=== PATIENT | female | born 1940 | race Caucasian/White ===

== ENCOUNTER 2020-03-09 11:39 | Emergency (ER) | payer BC, MEDICARE ==
[~2020-03-09] VITALS: Ht 157.5 cm; Wt 60.9 kg
[2020-03-09 11:53] VITALS: BP 155/79
[2020-03-09] MEDS ORDERED: oxymetazoline 15 ML nasal spray NS ONE (12:40)
[2020-03-09] MEDS ORDERED: tranexamic acid 100mg/ml inj. TP ONE (13:05)
--- NOTE | 2020-03-09 13:50 | NUR ---
Patient resting in bed. she is still having slight oozing of blood from right nastral. Continuing to monitor.
== END 2020-03-09 14:41 | disposition home or self-care (01) ==
LOC: ER 11:40
DX: R04.0 Epistaxis (principal); Z88.0 Allergy status to penicillin; Z88.1 Allergy status to other antibiotic agents; Z88.5 Allergy status to narcotic agent
CPT/HCPCS: 30901; 99284

== ENCOUNTER 2022-02-10 05:28 | Inpatient (IN) | payer BC, MEDICARE ==
[2022-01-29 11:07] LABS: BASOPHILS # (AUTO) 0.1 X10'3 (0-0.2); BASOPHILS % (AUTO) 0.7 % (0-1); EOSINOPHILS # (AUTO) 0.3 X10'3 (0-0.9); EOSINOPHILS % (AUTO) 4.7 % (0-6); LYMPHOCYTES # (AUTO) 1.4 X10'3 (1.1-4.8); MEAN CORPUSCULAR HGB CONC 33.2 g/dL (33.0-36.5); MEAN CORPUSCULAR VOLUME 84.5 FL (78-98); MEAN PLATELET VOLUME 8.2 FL (7.4-10.4); MONOCYTES # (AUTO) 0.7 X10'3 (0-0.9); MONOCYTES % (AUTO) 9.5 % (2-12); NEUTROPHILS # (AUTO) 4.6 X10'3 (1.8-7.7); NEUTROPHILS % (AUTO) 65.1 % (42-75); PRE OP HEMATOCRIT 32.5 % (35.0-45.0); PRE OP PLATELET COUNT 238 X10'3 (140-440); RED BLOOD COUNT 3.85 X10'6 (4.20-5.60); RED CELL DISTRIBUTION WIDTH 14.3 % (11.5-14.5)
[2022-01-29 11:09] LABS: PRE OP HEMOGLOBIN 10.8 g/dL (12.0-16.0)
[2022-01-29 11:32] LABS: ALBUMIN 3.7 G/DL (3.4-5.0); ALKALINE PHOSPHATASE 93 IU/L (46-116); BLOOD UREA NITROGEN 36 MG/DL (7-18); BUN/CREATININE RATIO 24.2 (6.6-38.0); CALCIUM 8.9 MG/DL (8.5-10.1); CHLORIDE 101 MMOL/L (99-107); CREATININE 1.49 MG/DL (0.40-0.90); PRE OP ALT 21 U/L (30-65); PRE OP ANION GAP -1 (8-16); PRE OP AST 22 U/L (10-37); PRE OP BILIRUB, TOTAL 0.4 MG/DL (0.0-1.0); PRE OP GLUCOSE 96 MG/DL (70-104); PRE OP POTASSIUM 3.5 MMOL/L (3.4-5.1); TOTAL CARBON DIOXIDE 27.6 MMOL/L (24-32); TOTAL PROTEIN 7.4 G/DL (6.4-8.2); eGFR 34 ML/MIN
[2022-01-29 11:35] LABS: PRE OP SODIUM 128 MMOL/L (135-145)
[2022-02-10] VITALS (23 sets, daily range): BP systolic 97–160; BP diastolic 48–101
[~2022-02-10] VITALS: Ht 157.5 cm; Wt 66.0 kg
[~2022-02-10 05:28] MED LIST: ASPI81TA52 PO; CALC600T22 PO; CHOL400T8 PO; COLLAGEN PO; DOCO1CAP11 PO; ESTR10TA VG; LACT1CAP65 PO; LEVO100T9 PO; MULT-1085 PO; PANT-47 PO; ROSU10TA2 PO; ringers solution, lacted 1,000 ML IV SCH
[2022-02-10] MEDS ORDERED: tranexamic acid 650mg tablet PO ONE (05:30)
[2022-02-10] MEDS ORDERED: vancomycin/NS 1 GM in NS 250 ML IV ONE (05:30)
[2022-02-10] MEDS ORDERED: ceFAZolin inj. 2,000 MG in dextrose 5%-water 100 ML IV ONE (05:30)
[2022-02-10] MEDS ORDERED: famotidine 20mg tablet PO ONE (05:30)
--- NOTE | 2022-02-10 06:30 | NUR ---
CSM INTACT, NEURO CHECK INTACT, PT DID NOT USE OINTMENT AND DID NOT WATCH THE VIDEO. Addendum: 02/10/22 at 1328 by Vivien Mcdaniel RN, RN Amended: Links added.
[2022-02-10 06:59] LABS: ISTAT CREATININE 1.6 mg/dL (0.6-1.1); ISTAT HGB 11.2 g/dl (12.0-16.0); ISTAT IONIZED CALCIUM 1.21 mmol/L (1.03-1.32); ISTAT K 3.7 mmol/L (3.5-5.1); POC BUN/CREATININE RATIO 21.3 (6.6-38.0)
[2022-02-10] MEDS ORDERED: ketorolac trometh. 30mg/ml inj. ONE (07:02)
[2022-02-10] MEDS ORDERED: ROPIVAcaine 0.5% (5mg/ml) 30ml vial ONE ×2 (07:02→09:08)
[2022-02-10] MEDS ORDERED: tetracaine 1% (10mg/ml) pres. free inj. ONE (07:21)
[2022-02-10] MEDS ORDERED: cloNIDine hcl/PF 100mcg/ml inj ONE (07:22)
[2022-02-10] MEDS ORDERED: midazolam 1 mg/ML 2ml injection ONE (07:26)
[2022-02-10] MEDS ORDERED: FENTANYL CITRATE/PF 50 MCG/1 ML VIAL ONE (07:26)
[2022-02-10] MEDS ORDERED: acetaminophen 1,000mg/100ml IV 100 ML IV PRN (08:40)
[2022-02-10] MEDS ORDERED: HYDROmorphone/PF 0.2 MG/ML SYRINGE IV PRN ×2 (08:40)
[2022-02-10] MEDS ORDERED: hydrALAZINE 20mg/ml inj. IV PRN (08:40)
[2022-02-10] MEDS ORDERED: proCHLORperazine 10 MG/2 ml inj IV PRN (08:40)
[2022-02-10] MEDS ORDERED: ondansetron/PF 4mg/2ml inj IV PRN ×2 (08:40→09:40)
[2022-02-10] MEDS ORDERED: morphine 4 MG/ML inj SYRINge IV PRN (08:40)
[2022-02-10] MEDS ORDERED: meperidine/PF 25mg/ml syringe IV PRN (08:40)
[2022-02-10] MEDS ORDERED: morphine 2 MG/ML inj. syringe IV PRN (08:40)
[2022-02-10] MEDS ORDERED: labetalol 20mg/4ml (5mg/ml) syringe IV PRN (08:40)
[2022-02-10] MEDS ORDERED: ringers solution, lacted 1,000 ML IV SCH (08:40)
[2022-02-10] MEDS ORDERED: ePHEDrine 50MG/ML INJ. ONE (09:08)
[2022-02-10] MEDS ORDERED: propofol inj 20 ML IV ONE ×3 (09:08)
[2022-02-10] MEDS ORDERED: dexamethasone sod phosphate 4mg/ml inj. ONE (09:08)
[2022-02-10] MEDS ORDERED: 0.9 % SODIUM CHLORIDE 10 ML VIAL ONE ×3 (09:08)
[2022-02-10] MEDS ORDERED: bisacodyl 10mg suppository rectal RC PRN (09:40)
[2022-02-10] MEDS ORDERED: naloxone 0.4 mg/ml inj IV PRN (09:40)
[2022-02-10] MEDS ORDERED: HYDROmorphone 1 mg/ml syringe IV PRN (09:40)
[2022-02-10] MEDS ORDERED: diphenhydrAMINE 25mg capsule PO PRN ×2 (09:40)
[2022-02-10] MEDS ORDERED: magnesium hydroxide 30ml (MOM) UD suspension PO PRN (09:40)
[2022-02-10] MEDS ORDERED: HYDROcodone/acetaminophen 10/325mg tab PO PRN ×2 (09:40)
[2022-02-10] MEDS ORDERED: acetaminophen 325mg tablet PO PRN (09:40)
[2022-02-10] MEDS ORDERED: HYDROmorphone inj. 0.5 MG/0.5 ML DISP.SYRIN IV PRN (09:40)
[2022-02-10] MEDS ORDERED: oxyCODONE IR 5mg (immed. release) tablet PO PRN ×2 (09:40)
--- NOTE | 2022-02-10 09:56 | NUR ---
Received from OR via , accompanied by Anesthesiologist CHERIE AND THE OR NURSE and report given by Anesthesiolgist. PT IS AWAKE/ALERT AND DENIES PAIN OR DISCOMFORT. CRAWLEY CATHETER PRESENT AND PATENT. 20G TO LEFT ARM. AYDEE ON 5LPM OF ; KIMBERLY MAGALLON. Addendum: 02/10/22 at 1109 by Kerrie Chaudhry RN Amended: Links added.
--- NOTE | 2022-02-10 12:06 | NUR ---
Report called to receiving nurse. Transferred via BED WITH ONE BAG OF Belongings . DAUGHTER, STEPH ACCOMPANIED PT TO FLOOR. PT DENIES PAIN OR DISCOMFORT. VSS. ABLE TO TOLERATE FLUIDS. LR RUNNING AT 100ML/HR. . Special Issues communicated to receiving nurse. Addendum: 02/10/22 at 1211 by Kerrie Chaudhry RN Amended: Links added.
--- NOTE | 2022-02-10 12:15 | NUR ---
Received patient to room 340B accompanied by x1 staff and daughter. Patient alert and oriented no apparent acute distress and denies any pain or discomfort at this time. Patient with dixon catheter draining to gravity clear yellow urine. Right knee with island dressing with small shadowing circled and karina ice pack, SCDs BLE. Patient oriented to room and call light. Call light placed within patient's reach. Post op initiated. Will continue to monitor.
[2022-02-10] MEDS: acetaminophen 325mg tablet PO SCH ×2 (13:51→20:30)
[2022-02-10] MEDS: ceFAZolin/D5W- 1GM premix 50 ML IV SCH (15:35)
--- NOTE | 2022-02-10 18:12 | NUR ---
Problems reprioritized. Patient report given, questions answered & plan of care reviewed with SERGIO Sauer.
[2022-02-10] MEDS: potassium cl 20mEq in 1/2 NS 1,000 ML IV SCH ×3 (19:10→22:00)
[2022-02-10] MEDS ORDERED: vancomycin/NS 1 GM ADD-VANTAGE 250 ML IV SCH (20:00)
[2022-02-10] MEDS: calcium carbonate/vitamin D3 tablet PO SCH (20:29)
[2022-02-10] MEDS ORDERED: ROSUVASTATIN CALCIUM 10 MG PO SCH (21:00)
[2022-02-10] MEDS ORDERED: sennosides 8.6mg tablet PO SCH (21:00)
[2022-02-11] VITALS: BP 140/47
[2022-02-11] MEDS: acetaminophen 325mg tablet PO SCH ×2 (01:36→07:29)
[2022-02-11] MEDS: ceFAZolin/D5W- 1GM premix 50 ML IV SCH (01:36)
--- NOTE | 2022-02-11 06:00 | NUR ---
Patient in room [facility] 340. I have received report from SERGIO WILLIAM and had the opportunity to ask questions and assume patient care.
[2022-02-11 06:16] LABS: BASOPHILS % (AUTO) 0.4 % (0-1); EOSINOPHILS % (AUTO) 0.2 % (0-6); HEMATOCRIT 23.3 % (35.0-45.0); HEMOGLOBIN 7.9 g/dl (12.0-16.0); LYMPHOCYTES % (AUTO) 13.6 % (21-51); MEAN CORPUSCULAR HEMOGLOBIN 28.8 PG (27.0-31.0); MEAN CORPUSCULAR VOLUME 84.7 FL (78-98); MEAN PLATELET VOLUME 8.4 FL (7.4-10.4); MONOCYTES # (AUTO) 1.1 X10'3 (0-0.9); MONOCYTES % (AUTO) 15.7 % (2-12); NEUTROPHILS % (AUTO) 70.1 % (42-75); PLATELET COUNT 137 X10'3 (140-440); RED BLOOD COUNT 2.75 X10'6 (4.20-5.60); RED CELL DISTRIBUTION WIDTH 13.9 % (11.5-14.5); WHITE BLOOD COUNT 7.2 X10'3 (4.5-11.0)
[2022-02-11 06:20] VITALS: BP 120/54
[2022-02-11 06:36] LABS: ANION GAP 10 (8-16); CHLORIDE 109 MMOL/L (99-107); POTASSIUM 4.3 MMOL/L (3.5-5.1); SODIUM 139 MMOL/L (135-145); TOTAL CARBON DIOXIDE 19.8 MMOL/L (24-32)
--- NOTE | 2022-02-11 06:50 | NUR ---
Problems reprioritized. Patient report given, questions answered & plan of care reviewed with Martinez. Addendum: 02/11/22 at 0651 by Tad Ding RN Amended: Links added.
[2022-02-11] MEDS ORDERED: levoTHYROXINE 100mcg tablet PO SCH (07:00)
[2022-02-11] MEDS: calcium carbonate/vitamin D3 tablet PO SCH (07:28)
[2022-02-11] MEDS ORDERED: cholecalciferol (vitamin D3) 400 unit (10mcg) tablet PO SCH (08:00)
[2022-02-11] MEDS ORDERED: [UNRECOGNIZED DRUG - OTHER] PO SCH (08:00)
[2022-02-11] MEDS ORDERED: pantoprazole 40mg Tablet.DR PO SCH (08:00)
[2022-02-11] MEDS ORDERED: OMEGA-3/DHA/EPA/FISH OIL 1 EACH CAPSULE.DR PO SCH (08:00)
[2022-02-11] MEDS ORDERED: lactobacillus rhamnosus 10,000 MMU CELLS/CAPSULE PO SCH (08:00)
[2022-02-11] MEDS ORDERED: multivitamins, therapeutics tablet PO SCH (08:00)
[2022-02-11] MEDS ORDERED: aspirin 325mg tablet PO SCH (08:30)
[2022-02-11] MEDS: potassium cl 20mEq in 1/2 NS 1,000 ML IV SCH (09:40)
--- NOTE | 2022-02-11 09:50 | NUR ---
Patient tolerated removal of dixon catheter well. No issues. Will continue to monitor.
--- NOTE | 2022-02-11 11:15 | NUR ---
Joint surgery consult: Pt s/p R knee surgery this admit per EMR. Pt seen by MAX for written/verbal high protein diet ed w/ RD contact information provided. MAX encouraged pt to contact dietitian's office if further questions/concerns. Addendum: 02/11/22 at [address] Amended: Links added.
[2022-02-11 12:24] VITALS: BP_SYST 110; BP_SYST 142; BP_DIAS 41; BP_DIAS 74
--- NOTE | 2022-02-11 12:36 | NUR ---
Patient alert and oriented in no apparent acute distress. Discussed with patient discharge instructions and med changes. Patient verbalizes understanding of teaching and states no questions. Patient belongings packed with assist from PCT. X2 karina powder packs given to patient. Right knee wraps in still on and dressing cdi. Patient ready for dc and waiting for daughter for ride home. Patient was requesting to have BSC for dc but notified by top case assembler that her patient will not cover. Patient states her daughter will purchase BSC after dc.
--- NOTE | 2022-02-11 12:45 | NUR ---
Patient dc'd with all personal belongings escorted out in wheelchair accompanied by BRIDGET Rodarte. Patient was alert and oriented at time of dc with no s/so of apparent acute distress and denied any complaints.
[2022-02-11] MEDS ORDERED: ESTRADIOL 10 MCG VG SCH (21:00)
[2022-02-12] MEDS ORDERED: acetaminophen 325mg tablet PO PRN (09:40)
== END 2022-02-11 12:38 | disposition home or self-care (01) | DRG 470 ==
LOC: PAS 05:28 → PAS IN 05:35 → EDSTATUS 07:30 → SUR 3N 12:14
PROVIDERS: ADMIT Orthopaedic Surgery; ATTEND Orthopaedic Surgery
PROC: 0SRC0J9 Replacement of Right Knee Joint with Synthetic Substitute, Cemented, Open Approach (ICD-10-PCS; principal; 2022-02-10 07:22)
DX: M17.11 Unilateral primary osteoarthritis, right knee (principal); D50.0 Iron deficiency anemia secondary to blood loss (chronic); Z79.899 Other long term (current) drug therapy
CPT/HCPCS: Z7506; Z7508; 36415; 80047; 80051; 80053; 82948; 84443; 85025; 87081; 93005; 97116; 97162; 97530; A4215; A7000; C1713; C1758; C1776; G0378; J0131; J0690; J0735; J1100; J1170; J1885; J2250; J2405; J2704; J2795; J3010; J3370; J3480; J3490; J7030; J7060; J7120